=== PATIENT | male | born 1955 | race Caucasian/White ===

== ENCOUNTER 2025-02-03 19:34 | Outpatient (CLI) | payer MEDICARE, SELFPAY ==
[2025-02-03 20:03] LABS: INR 1.94 (0.8-1.2); Prothrombin Time 23.30 SECONDS (12.1-14.9)
== END 2025-02-03 19:35 | disposition home or self-care (01) ==
PROVIDERS: Visit Provider Student in an Organized Health Care Education/Training Program
DX: Z01.89 Encounter for other specified special examinations (principal)
CPT/HCPCS: 85610